=== PATIENT | female | born 1965 | race Caucasian/White ===

== ENCOUNTER 2016-06-30 12:16 | Emergency (ER) | payer OTHER ==
[~2016-06-30] VITALS: Ht 172.7 cm; Wt 110.0 kg
[~2016-06-30 12:16] MED LIST: AMITRIPTYLINE100 M1 PO; AMITRIPTYLINE100 MG PO; ANTIVERT25 MG PO; BENTYL20 MG PO; Bacid PO; CLINDAMYCIN HC300 MG PO; DIFICID PO; ELAVIL100 MG PO; ELAVIL25 MG PO; FLEXERIL5 M1 PO; FLORINEF ACETA0.1 MG PO; IMITREX100 MG PO; LEVAQUIN750 MG PO; LEVOTHYROXINE100 MCG PO; LIDODERM 5% P1 PATCH PO; LORTAB 5-500 T1 EACH PO; MACROBID100 MG PO; MOTRIN800 MG PO; MULTIVITAMIN1 EAC2 PO; OXYCODONE HCL10 MG PO; PAXIL30 MG PO; PAXIL40 MG PO; PHENADOZ25 MG PR; PRILOSEC20 MG PO; PROMETHAZINE HC25 M1 PO; PROTONIX40 MG PO; RANITIDINE HCL150 MG PO; RANITIDINE HCL300 MG PO; Reglan PO; SARELLA; SUMATRIPTAN SU100 MG PO; SUMATRIPTAN SUC50 MG PO; SYNTHROID100 MCG PO; THERAGRAN1 TABLET PO; TOPAMAX100 MG PO; TOPAMAX50 MG PO; TRAZODONE HCL150 MG PO; TYLENOL EXTRA500 MG PO; TYLENOL WITH C1 EACH PO; VICODIN,LORT1 TABLET PO; VITAMIN B-1100 MG PO; VIVANZ PO; VYVANSE30 MG PO; ZANAFLEX2 M1 PO; ZANTAC300 MG PO; ZOFRAN4 MG PO
[2016-06-30 16:53] LABS: HEMATOCRIT 40.3 % (36.0-46.0); MCH 30.8 PG (29.0-34.0); MCHC 32.8 G/DL (30.0-36.0); MCV 93.9 FL (83-99); MEAN PLAT.VOLUME 10.5 uM^3 (9.5-12.4); PLATELET COUNT 280 K/uL (156-360); RBC DIS.WIDTH-CV 13.5 % (11.8-14.6); RBC DIS.WIDTH-SD 44.3 % (39-53); RED BLOOD COUNT 4.29 M/uL (3.80-5.20); WHITE BLOOD COUNT 6.7 K/uL (4.1-10.2)
[2016-06-30 17:05] LABS: CHLORIDE 100 mEq/L (99-109); POTASSIUM 4.4 mEq/L (3.7-5.4); SODIUM 133 mEq/L (136-147)
[2016-06-30 17:07] LABS: GLUCOSE 89 mg/dL (70-99)
[2016-06-30 17:08] LABS: ANION GAP 10 MEQ/L (2-14)
[2016-06-30 17:11] LABS: GFR ESTIMATE (CALCULATED) > 59 mL/min/
[2016-06-30 17:12] LABS: UREA NITROGEN (BUN) 16 mg/dL (9-23)
[2016-06-30 18:04] LABS: ADD MIUA? YES; BILIRUBIN NEGATIVE; BLOOD NEGATIVE; COLOR YELLOW ((YELLOW)); GLUCOSE (STRIP) NEGATIVE; KETONES NEGATIVE; LEUKOCYTES TRACE; NITRITE NEGATIVE; PROTEIN (STRIP) NEGATIVE; SPECIFIC GRAVITY 1.014 (1.000-1.030); UROBILINOGEN 0.2 MG/DL (0.2-1.0)
[2016-06-30] MEDS ORDERED: FIORICET 50-301 EACH PO (18:21)
[2016-06-30] MEDS ORDERED: PREDNISONE20 MG PO (18:21)
[2016-06-30] MEDS ORDERED: MOTRIN800 MG PO (18:21)
[2016-06-30 18:32] VITALS: BP 131/63
[2016-06-30 18:49] LABS: BACTERIA RARE; CASTS NONE SEEN /LPF; CRYSTALS NONE SEEN; EPITHELIAL CELLS 1+; MUCUS NONE SEEN; RED BLOOD CELLS 0-5 /HPF (0-5); WHITE BLOOD CELLS 0-5 /HPF (0-5)
== END 2016-06-30 18:34 | disposition home or self-care (01) ==
LOC: EME 12:16
PROVIDERS: Physician Assistant
DX: R51 Headache (principal); R42 Dizziness and giddiness; R55 Syncope and collapse; R11.2 Nausea with vomiting, unspecified; R41.0 Disorientation, unspecified
CPT/HCPCS: 70486; 80048; 81003; 84443; 85027; 93005; 99281; 99284; J1885; J2930

== ENCOUNTER 2017-06-08 16:07 | Emergency (ER) | payer OTHER ==
[~2017-06-08] VITALS: Ht 172.7 cm; Wt 76.6 kg
[~2017-06-08 16:07] MED LIST changes: +FIORICET 50-301 EACH PO; +PREDNISONE20 MG PO
[2017-06-08] MEDS ORDERED: NORCO 5/3251 TABLET PO (17:52)
[2017-06-08] MEDS ORDERED: FLEXERIL10 MG PO (17:52)
[2017-06-08 18:45] VITALS: BP 138/79
== END 2017-06-08 18:47 | disposition home or self-care (01) ==
LOC: EME 16:07
DX: S80.01XA Contusion of right knee, initial encounter (principal); S39.012A Strain of muscle, fascia and tendon of lower back, initial encounter; W18.09XA Striking against other object with subsequent fall, initial encounter; G89.29 Other chronic pain; M54.2 Cervicalgia; F32.9 Major depressive disorder, single episode, unspecified; F41.9 Anxiety disorder, unspecified; Z88.1 Allergy status to other antibiotic agents; Z88.2 Allergy status to sulfonamides; Z88.0 Allergy status to penicillin
CPT/HCPCS: 72040; 72100; 73564; 99281; 99284; J2270; J2405

== ENCOUNTER 2017-07-27 15:50 | Emergency (ER) | payer OTHER ==
[~2017-07-27] VITALS: Ht 172.7 cm; Wt 120.7 kg
[~2017-07-27 15:50] MED LIST changes: +FLEXERIL10 MG PO; +NORCO 5/3251 TABLET PO
[2017-07-27] MEDS ORDERED: ZITHROMAX Z-PA250 MG PO (16:45)
[2017-07-27] MEDS ORDERED: PREDNISONE10 M1 PO (16:45)
[2017-07-27 17:00] VITALS: BP 127/91
== END 2017-07-27 17:02 | disposition home or self-care (01) ==
LOC: EME 15:50
DX: J01.90 Acute sinusitis, unspecified (principal); F32.9 Major depressive disorder, single episode, unspecified; M79.7 Fibromyalgia; K21.9 Gastro-esophageal reflux disease without esophagitis; F41.9 Anxiety disorder, unspecified; R56.9 Unspecified convulsions; Z88.2 Allergy status to sulfonamides; Z88.1 Allergy status to other antibiotic agents; Z88.0 Allergy status to penicillin
CPT/HCPCS: 87502

== ENCOUNTER 2017-08-05 05:45 | Inpatient (IN) | payer OTHER ==
[~2017-08-05] VITALS: Ht 172.7 cm; Wt 118.4 kg
[~2017-08-05 05:45] MED LIST changes: +PREDNISONE10 M1 PO; +ZITHROMAX Z-PA250 MG PO
[2017-08-05 07:49] LABS: HEMATOCRIT 42.8 % (36.0-46.0); HEMOGLOBIN 14.1 G/DL (11.9-15.5); MCH 30.1 PG (29.0-34.0); MCHC 32.9 G/DL (30.0-36.0); MCV 91.3 FL (83-99); PLATELET COUNT 359 K/uL (156-360); RBC DIS.WIDTH-CV 13.5 % (11.8-14.6); RBC DIS.WIDTH-SD 45.1 % (39-53); RED BLOOD COUNT 4.69 M/uL (3.80-5.20); WHITE BLOOD COUNT 7.9 K/uL (4.1-10.2)
[2017-08-05 08:24] LABS: CHLORIDE 103 MEQ/L (99-109); POTASSIUM 3.5 MEQ/L (3.7-5.4); SODIUM 141 MEQ/L (136-147)
[2017-08-05 08:29] LABS: CREATININE 0.5 MG/DL (0.6-1.3); GFR ESTIMATE (CALCULATED) > 59 mL/min/; GLUCOSE 110 mg/dL (70-99); SERUM ETHYL ALCOHOL 224 mg/dL; UREA NITROGEN (BUN) 6 mg/dL (9-23)
[2017-08-05 10:06] LABS: APPEARANCE CLEAR ((CLEAR)); BILIRUBIN NEGATIVE; BLOOD MODERATE; COLOR COLORLESS ((YELLOW)); GLUCOSE (STRIP) NEGATIVE; KETONES NEGATIVE; LEUKOCYTES NEGATIVE; NITRITE NEGATIVE; PROTEIN (STRIP) NEGATIVE; SPECIFIC GRAVITY 1.003 (1.000-1.030); UROBILINOGEN 0.2 MG/DL (0.2-1.0)
[2017-08-05 10:09] LABS: BACTERIA NONE SEEN /HPF; EPITHELIAL CELLS RARE /HPF; MUCUS NONE SEEN /LPF; RED BLOOD CELLS 0-5 /HPF (0-5); UCUL ADDED? NO; WHITE BLOOD CELLS 0-5 /HPF (0-5)
[2017-08-05 10:23] LABS: AMPHETAMINE NEGATIVE (500 ng/mL); BARBITURATES NEGATIVE (200 ng/mL); BENZODIAZEPINES NEGATIVE (150 ng/mL); COCAINE NEGATIVE (150 ng/mL); METHADONE NEGATIVE (200 ng/mL); METHAMPHETAMINE NEGATIVE (500 ng/mL); OPIATES (MORPHINE) NEGATIVE (100 ng/mL); OXYCODONE NEGATIVE (100 ng/mL); PHENCYCLIDINE NEGATIVE (25 ng/mL); THC CANNABINOIDS NEGATIVE (50 ng/mL); TRICYCLIC ANTIDEPRESSANTS NEGATIVE (300 ng/mL)
[2017-08-05 10:24] LABS: BUPRENORPHINE NEGATIVE (10 ng/mL); PROPOXYPHENE NEGATIVE (300 ng/mL)
[2017-08-05 14:53] LABS: MAGNESIUM 2.1 mg/dl (1.3-2.7)
[2017-08-05] MEDS ORDERED: BENADRYL ALLERG25 MG PO (17:23)
[2017-08-05] MEDS ORDERED: ROBITUSSIN DM118 ML PO (17:23)
[2017-08-05] MEDS ORDERED: PRILOSEC20 MG PO (17:23)
[2017-08-05] MEDS ORDERED: IMITREX50 MG PO (17:24)
[2017-08-05] MEDS ORDERED: BENZONATATE200 MG PO (17:24)
[2017-08-05] MEDS ORDERED: LEVAQUIN500 MG PO (17:24)
[2017-08-05] MEDS ORDERED: ADVIL,NUPRIN,M200 MG PO (17:24)
[2017-08-05] MEDS ORDERED: MELOXICAM7.5 MG PO (17:25)
[2017-08-05 17:45] VITALS: BP 138/81
[2017-08-05 20:20] VITALS: BP 130/67
[2017-08-05 23:26] VITALS: BP 119/56
[2017-08-06 04:21] VITALS: BP 131/67
[2017-08-06 07:58] VITALS: BP 115/59
[2017-08-06 11:28] VITALS: BP 128/73
[2017-08-06 15:41] VITALS: BP 138/63
[2017-08-06 19:56] VITALS: BP 125/68
[2017-08-06 23:36] VITALS: BP 125/75
[2017-08-07 04:33] VITALS: BP 108/60
[2017-08-07 06:09] LABS: ALBUMIN 3.2 G/DL (3.2-4.8); ALKALINE PHOSPHATASE 59 IU/L (3-129); ALT (GPT) 22 IU/L (3-49); AST (GOT) 18 IU/L (2-34); CHLORIDE 105 MEQ/L (99-109); CREATININE 0.5 MG/DL (0.6-1.3); GFR ESTIMATE (CALCULATED) > 59 mL/min/; GLUCOSE 96 mg/dL (70-99); POTASSIUM 3.5 MEQ/L (3.7-5.4); SODIUM 143 MEQ/L (136-147); TOTAL BILIRUBIN 0.9 MG/DL (0.0-1.0); TOTAL PROTEIN 5.4 G/DL (6.4-8.3); UREA NITROGEN (BUN) 4 mg/dL (9-23)
[2017-08-07 07:40] VITALS: BP 126/68
[2017-08-07 12:15] VITALS: BP 141/75
[2017-08-07 15:35] VITALS: BP 122/66
[2017-08-07 20:22] VITALS: BP 122/62
[2017-08-07 23:13] VITALS: BP 123/68
[2017-08-08] VITALS (7 sets, daily range): BP systolic 120–142; BP diastolic 59–77
[2017-08-08 06:03] LABS: CHLORIDE 104 MEQ/L (99-109); CREATININE 0.5 MG/DL (0.6-1.3); GFR ESTIMATE (CALCULATED) > 59 mL/min/; GLUCOSE 100 mg/dL (70-99); POTASSIUM 3.2 MEQ/L (3.7-5.4); SODIUM 141 MEQ/L (136-147); UREA NITROGEN (BUN) 3 mg/dL (9-23)
[2017-08-09 03:38] VITALS: BP 123/57
[2017-08-09 05:57] LABS: BASOPHIL (%) 0.6 % (0-1); EOSINOPHIL (%) 3.2 % (0-5); EOSINOPHIL COUNT 0.1 K/uL (0-0.3); HEMATOCRIT 34.2 % (36.0-46.0); IMMATURE GRANULOCYTE (%) 0.3 % (0.0-0.7); LYMPHOCYTE (%) 36.9 % (15-42); LYMPHOCYTE COUNT 1.3 K/uL (1.0-2.8); MCH 30.5 PG (29.0-34.0); MCHC 31.9 G/DL (30.0-36.0); MONOCYTE (%) 14.7 % (3-12); MONOCYTE COUNT 0.5 K/uL (0-0.8); NEUTROPHIL (%) 44.3 % (45-76); NEUTROPHIL COUNT 1.5 K/uL (1.8-6.4); RBC DIS.WIDTH-CV 13.7 % (11.8-14.6); RBC DIS.WIDTH-SD 48.2 % (39-53); WHITE BLOOD COUNT 3.5 K/uL (4.1-10.2)
[2017-08-09 06:03] LABS: HEMOGLOBIN 10.9 G/DL (11.9-15.5); MCV 95.8 FL (83-99); RED BLOOD COUNT 3.57 M/uL (3.80-5.20)
[2017-08-09 06:20] LABS: ALBUMIN 3.2 G/DL (3.2-4.8); CHLORIDE 104 MEQ/L (99-109); CREATININE 0.6 MG/DL (0.6-1.3); GFR ESTIMATE (CALCULATED) > 59 mL/min/; GLUCOSE 92 mg/dL (70-99); PHOSPHORUS 3.7 mg/dL (2.5-4.9); SODIUM 140 MEQ/L (136-147); UREA NITROGEN (BUN) 4 mg/dL (9-23)
[2017-08-09 06:49] LABS: PLAT.SUFFICIENCY ADEQUATE
[2017-08-09 07:10] LABS: PLATELET COUNT 227 K/uL (156-360)
[2017-08-09 08:44] VITALS: BP 123/68
[2017-08-09 12:22] VITALS: BP 136/76
[2017-08-09 16:46] VITALS: BP 108/65
[2017-08-09 20:02] VITALS: BP 151/74
[2017-08-09 23:41] VITALS: BP 117/72
[2017-08-10 03:38] VITALS: BP 108/58
[2017-08-10 05:21] LABS: BASOPHIL (%) 0.2 % (0-1); EOSINOPHIL (%) 3.4 % (0-5); EOSINOPHIL COUNT 0.2 K/uL (0-0.3); HEMATOCRIT 33.4 % (36.0-46.0); HEMOGLOBIN 10.5 G/DL (11.9-15.5); IMMATURE GRANULOCYTE (%) 0.5 % (0.0-0.7); LYMPHOCYTE COUNT 1.4 K/uL (1.0-2.8); MCH 29.5 PG (29.0-34.0); MCHC 31.4 G/DL (30.0-36.0); MCV 93.8 FL (83-99); MONOCYTE (%) 11.5 % (3-12); MONOCYTE COUNT 0.5 K/uL (0-0.8); NEUTROPHIL (%) 51.4 % (45-76); NEUTROPHIL COUNT 2.2 K/uL (1.8-6.4); PLATELET COUNT 219 K/uL (156-360); RBC DIS.WIDTH-CV 13.7 % (11.8-14.6); RBC DIS.WIDTH-SD 46.9 % (39-53); RED BLOOD COUNT 3.56 M/uL (3.80-5.20); WHITE BLOOD COUNT 4.4 K/uL (4.1-10.2)
[2017-08-10 05:45] LABS: CHLORIDE 104 MEQ/L (99-109); CREATININE 0.5 MG/DL (0.6-1.3); GFR ESTIMATE (CALCULATED) > 59 mL/min/; GLUCOSE 95 mg/dL (70-99); POTASSIUM 3.3 MEQ/L (3.7-5.4); SODIUM 140 MEQ/L (136-147); UREA NITROGEN (BUN) 4 mg/dL (9-23)
[2017-08-10 12:39] VITALS: BP 133/81
[2017-08-10 16:21] VITALS: BP 162/83
[2017-08-10 19:29] VITALS: BP 138/79
[2017-08-11 00:23] VITALS: BP 109/58
[2017-08-11 04:22] VITALS: BP 119/65
[2017-08-11 08:54] LABS: HEMATOCRIT 37.9 % (36.0-46.0); HEMOGLOBIN 12.2 G/DL (11.9-15.5); MCH 30.4 PG (29.0-34.0); MCHC 32.2 G/DL (30.0-36.0); MCV 94.5 FL (83-99); PLATELET COUNT 222 K/uL (156-360); RBC DIS.WIDTH-CV 13.8 % (11.8-14.6); RBC DIS.WIDTH-SD 47.3 % (39-53); RED BLOOD COUNT 4.01 M/uL (3.80-5.20); WHITE BLOOD COUNT 5.1 K/uL (4.1-10.2)
[2017-08-11 09:30] LABS: CHLORIDE 103 MEQ/L (99-109); CREATININE 0.6 MG/DL (0.6-1.3); GFR ESTIMATE (CALCULATED) > 59 mL/min/; GLUCOSE 93 mg/dL (70-99); POTASSIUM 4.2 MEQ/L (3.7-5.4); SODIUM 140 MEQ/L (136-147); UREA NITROGEN (BUN) 3 mg/dL (9-23)
[2017-08-11 16:30] VITALS: BP 120/72
[2017-08-11 19:27] VITALS: BP 140/83
[2017-08-11 23:36] VITALS: BP 109/57
[2017-08-12 03:55] VITALS: BP 128/67
[2017-08-12 05:58] LABS: BASOPHIL (%) 0.2 % (0-1); EOSINOPHIL (%) 3.2 % (0-5); EOSINOPHIL COUNT 0.1 K/uL (0-0.3); HEMATOCRIT 34.5 % (36.0-46.0); IMMATURE GRANULOCYTE (%) 0.2 % (0.0-0.7); LYMPHOCYTE (%) 27.4 % (15-42); LYMPHOCYTE COUNT 1.2 K/uL (1.0-2.8); MCH 29.6 PG (29.0-34.0); MCHC 31.9 G/DL (30.0-36.0); MONOCYTE (%) 9.5 % (3-12); MONOCYTE COUNT 0.4 K/uL (0-0.8); NEUTROPHIL (%) 59.5 % (45-76); NEUTROPHIL COUNT 2.6 K/uL (1.8-6.4); PLATELET COUNT 216 K/uL (156-360); RBC DIS.WIDTH-CV 13.7 % (11.8-14.6); RBC DIS.WIDTH-SD 46.3 % (39-53); RED BLOOD COUNT 3.71 M/uL (3.80-5.20); WHITE BLOOD COUNT 4.4 K/uL (4.1-10.2)
[2017-08-12 06:30] LABS: CHLORIDE 103 MEQ/L (99-109); CREATININE 0.5 MG/DL (0.6-1.3); GFR ESTIMATE (CALCULATED) > 59 mL/min/; GLUCOSE 92 mg/dL (70-99); POTASSIUM 3.8 MEQ/L (3.7-5.4); SODIUM 141 MEQ/L (136-147); UREA NITROGEN (BUN) 4 mg/dL (9-23)
[2017-08-12 07:47] VITALS: BP 123/76
[2017-08-12 16:02] VITALS: BP 123/59
[2017-08-13 00:23] VITALS: BP 105/53
[2017-08-13 07:07] LABS: BASOPHIL (%) 0.5 % (0-1); EOSINOPHIL (%) 3.3 % (0-5); EOSINOPHIL COUNT 0.1 K/uL (0-0.3); HEMATOCRIT 34.2 % (36.0-46.0); HEMOGLOBIN 11.1 G/DL (11.9-15.5); IMMATURE GRANULOCYTE (%) 0.3 % (0.0-0.7); LYMPHOCYTE (%) 33.2 % (15-42); LYMPHOCYTE COUNT 1.3 K/uL (1.0-2.8); MCH 30.3 PG (29.0-34.0); MCHC 32.5 G/DL (30.0-36.0); MCV 93.4 FL (83-99); MONOCYTE (%) 9.9 % (3-12); MONOCYTE COUNT 0.4 K/uL (0-0.8); NEUTROPHIL (%) 52.8 % (45-76); NEUTROPHIL COUNT 2.1 K/uL (1.8-6.4); PLATELET COUNT 207 K/uL (156-360); RBC DIS.WIDTH-CV 13.9 % (11.8-14.6); RBC DIS.WIDTH-SD 46.9 % (39-53); RED BLOOD COUNT 3.66 M/uL (3.80-5.20); WHITE BLOOD COUNT 3.9 K/uL (4.1-10.2)
[2017-08-13 07:39] LABS: CHLORIDE 103 MEQ/L (99-109); CREATININE 0.5 MG/DL (0.6-1.3); GFR ESTIMATE (CALCULATED) > 59 mL/min/; GLUCOSE 88 mg/dL (70-99); POTASSIUM 3.9 MEQ/L (3.7-5.4); SODIUM 140 MEQ/L (136-147); UREA NITROGEN (BUN) 5 mg/dL (9-23)
[2017-08-13 07:50] VITALS: BP 125/64
[2017-08-13 16:20] VITALS: BP 133/82
[2017-08-14 00:04] VITALS: BP 134/68
[2017-08-14 07:54] VITALS: BP 137/79
[2017-08-14 16:34] VITALS: BP 136/89
[2017-08-14 21:24] VITALS: BP 149/96
[2017-08-14 21:25] LABS: CHLORIDE 102 MEQ/L (99-109); POTASSIUM 4.2 MEQ/L (3.7-5.4); SODIUM 138 MEQ/L (136-147)
[2017-08-14 21:31] LABS: CREATININE 0.6 MG/DL (0.6-1.3); GFR ESTIMATE (CALCULATED) > 59 mL/min/; GLUCOSE 91 mg/dL (70-99); UREA NITROGEN (BUN) 6 mg/dL (9-23)
[2017-08-14 21:35] LABS: TROP-I INTERPRETATION NEGATIVE; TROPONIN-I < 0.01 ng/mL (0.0-0.30)
[2017-08-14 23:26] VITALS: BP 165/77
[2017-08-15 04:35] VITALS: BP 114/63
[2017-08-15 05:09] LABS: TROP-I INTERPRETATION NEGATIVE; TROPONIN-I < 0.01 ng/mL (0.0-0.30)
[2017-08-15 09:40] VITALS: BP 157/84
[2017-08-15 10:04] LABS: HEMOGLOBIN A1c (GLYCOHEMOGLOB) 5.4 % (Below 5.7)
[2017-08-15 16:38] VITALS: BP 140/82
[2017-08-15 19:32] VITALS: BP 140/84
[2017-08-15 23:20] VITALS: BP 110/69
[2017-08-16 05:27] VITALS: BP 110/53
[2017-08-16 08:11] VITALS: BP 137/81
[2017-08-16 12:52] LABS: FOLIC ACID (FOLATE) > 22.0 NG/ML (5.0-22.0)
[2017-08-16 15:55] VITALS: BP 151/85
[2017-08-16 20:03] VITALS: BP 118/69
[2017-08-17 00:41] VITALS: BP 109/56
[2017-08-17 08:00] VITALS: BP 138/79
[2017-08-17 11:05] LABS: HEMATOCRIT 37.1 % (36.0-46.0); HEMOGLOBIN 11.8 G/DL (11.9-15.5); MCH 29.6 PG (29.0-34.0); MCHC 31.8 G/DL (30.0-36.0); PLATELET COUNT 210 K/uL (156-360); RBC DIS.WIDTH-CV 13.8 % (11.8-14.6); RED BLOOD COUNT 3.99 M/uL (3.80-5.20); WHITE BLOOD COUNT 3.2 K/uL (4.1-10.2)
[2017-08-17 12:01] VITALS: BP 140/85
[2017-08-17 12:08] VITALS: BP 166/77
[2017-08-17 12:12] LABS: ALKALINE PHOSPHATASE 63 IU/L (3-129); ALT (GPT) 21 IU/L (3-49); AST (GOT) 19 IU/L (2-34); CHLORIDE 104 MEQ/L (99-109); CREATININE 0.5 MG/DL (0.6-1.3); GFR ESTIMATE (CALCULATED) > 59 mL/min/; GLUCOSE 89 mg/dL (70-99); POTASSIUM 4.2 MEQ/L (3.7-5.4); SODIUM 143 MEQ/L (136-147); TOTAL BILIRUBIN 0.6 MG/DL (0.0-1.0); TOTAL PROTEIN 6.2 G/DL (6.4-8.3); UREA NITROGEN (BUN) 6 mg/dL (9-23)
[2017-08-17 15:14] VITALS: BP 136/81
[2017-08-18 00:09] VITALS: BP 128/66
[2017-08-18 02:49] VITALS: BP 117/61
[2017-08-18 07:49] VITALS: BP 145/85
[2017-08-18] MEDS ORDERED: ELAVIL100 MG PO (10:22)
[2017-08-18] MEDS ORDERED: PAXIL40 MG PO (10:23)
[2017-08-18] MEDS ORDERED: ARIPIPRAZOLE2 MG PO (10:23)
[2017-08-18] MEDS ORDERED: PANTOPRAZOLE SO40 MG PO (10:24)
[2017-08-18] MEDS ORDERED: Thiamine,Vitamin B1 PO (10:24)
[2017-08-18] MEDS ORDERED: ONDANSETRON ODT4 MG PO (10:24)
[2017-08-18] MEDS ORDERED: FOLIC ACID1 MG PO (10:24)
[2017-08-18] MEDS ORDERED: THERAGRAN1 TABLET PO (10:25)
[2017-08-18] MEDS ORDERED: ELAVIL25 MG PO (10:28)
== END 2017-08-18 12:30 | disposition home or self-care (01) | DRG 392 ==
LOC: EME → EDBD 05:45 → 3EAST 13:40 → EDOF 13:40 → ENRESERV 13:50 → EDOF 14:39 → ENRESERV 15:48 → 3EAST 17:34
PROVIDERS: Emergency Medicine; Hospitalist; Internal Medicine; Internal Medicine Gastroenterology; Physician Assistant
PROC: 0DB68ZX Excision of Stomach, Via Natural or Artificial Opening Endoscopic, Diagnostic (ICD-10-PCS; principal; 2017-08-08)
DX: K31.84 Gastroparesis (principal); F10.231 Alcohol dependence with withdrawal delirium; E66.01 Morbid (severe) obesity due to excess calories; Z68.41 Body mass index [BMI] 40.0-44.9, adult; K25.9 Gastric ulcer, unspecified as acute or chronic, without hemorrhage or perforation; R55 Syncope and collapse; I10 Essential (primary) hypertension; K22.10 Ulcer of esophagus without bleeding; R11.2 Nausea with vomiting, unspecified; K80.21 Calculus of gallbladder without cholecystitis with obstruction; G43.A0 Cyclical vomiting, in migraine, not intractable; M54.2 Cervicalgia; G89.29 Other chronic pain; K21.9 Gastro-esophageal reflux disease without esophagitis; E03.9 Hypothyroidism, unspecified; F90.9 Attention-deficit hyperactivity disorder, unspecified type; M25.562 Pain in left knee; M25.561 Pain in right knee; Y90.7 Blood alcohol level of 200-239 mg/100 ml; K76.0 Fatty (change of) liver, not elsewhere classified; E86.0 Dehydration; K29.60 Other gastritis without bleeding; K80.20 Calculus of gallbladder without cholecystitis without obstruction; E87.6 Hypokalemia; K42.9 Umbilical hernia without obstruction or gangrene; F32.9 Major depressive disorder, single episode, unspecified; G43.909 Migraine, unspecified, not intractable, without status migrainosus; G40.909 Epilepsy, unspecified, not intractable, without status epilepticus; Z88.2 Allergy status to sulfonamides; Z80.49 Family history of malignant neoplasm of other genital organs; Z88.0 Allergy status to penicillin; Z88.1 Allergy status to other antibiotic agents; Z79.899 Other long term (current) drug therapy; Z91.81 History of falling; Z82.49 Family history of ischemic heart disease and other diseases of the circulatory system
CPT/HCPCS: 70450; 70551; 71045; 73030; 73564; 74177; 74250; 76705; 78227; 78264; 80048; 80053; 80069; 81003; 82306; 82607; 82746; 82948; 83036; 83690; 83735; 84484; 85025; 85027; 88305; 88342 TC; 90686; 93005; 94799; 97530 GO; 97530 GP; 99281; 99285; A9537; A9541; C9113; G0480; G8978 GP CM; G8979 GP CK; G8987 CK; G8988 GO CJ; J1644; J2060; J2250; J2405; J2550; J2765; J2805; J3411; J3480; J7030; J7040; J7050; J7120; Q0169